=== PATIENT | female | born 1975 | race Caucasian/White ===

== ENCOUNTER 2017-06-12 15:49 | Emergency (ER) | payer MEDICAID, MEDICARE ==
[~2017-06-12] VITALS: Ht 162.6 cm; Wt 48.0 kg
[~2017-06-12 15:49] MED LIST: ALPR1 PO; COUM5TAB PO; CYCL-36 PO; FENT25DI T-DERMAL; GABA300C3 PO; IRON18TA2 PO; POTA20IN3 PO; ZOLP10TA3 PO
[2017-06-12 15:51] VITALS: BP 126/77; PULSE 87; RESP 15; TEMP 97.8; O2SAT 97
[2017-06-12] MEDS ORDERED: SODIUM CHLOR 0.9% 1000 ML INJ 1,000 ML IV SCH (16:20)
[2017-06-12 16:59] LABS: AUTOMATED NEUTROPHIL # 5.3 TH/MM3 (1.8-7.7); BASOPHIL % 0.3 % (0.0-2.0); EOSINOPHIL # 0.1 TH/MM3 (0-0.4); EOSINOPHIL % 0.7 % (0.0-4.0); HEMATOCRIT 38.4 % (35.0-46.0); HEMO FLAGS DIFF FINAL; LYMPH % 29.8 % (9.0-44.0); LYMPHOCYTE # 2.7 TH/MM3 (1.0-4.8); MEAN CELL VOLUME 99.1 FL (80.0-100.0); MEAN CORPUSCULAR HEMOGLOBIN 33.3 PG (27.0-34.0); MEAN CORPUSCULAR HGB CONC 33.6 % (32.0-36.0); MONO % 9.2 % (0.0-8.0); PLATELET COUNT 255 TH/MM3 (150-450); RED BLOOD COUNT 3.87 MIL/MM3 (4.00-5.30); RED CELL DISTRIBUTION WIDTH 15.1 % (11.6-17.2); WHITE BLOOD COUNT 8.9 TH/MM3 (4.0-11.0)
[2017-06-12] MEDS ORDERED: CYCL1TAB29 PO (17:01)
[2017-06-12] MEDS ORDERED: PROM25TA10 PO (17:01)
[2017-06-12] MEDS ORDERED: NEXI40CA PO (17:01)
[2017-06-12] MEDS ORDERED: ZOLO100T PO (17:01)
[2017-06-12] MEDS ORDERED: PERC5TAB12 PO (17:01)
[2017-06-12] MEDS ORDERED: POTA10SO12 PO (17:01)
[2017-06-12] MEDS ORDERED: COUM10TA PO (17:03)
[2017-06-12 17:11] LABS: BACTERIA, URINE RARE /hpf; BLOOD, URINE NEG (NEG); COMMENT (UR) CULTURE INDICATED; CULTURE IF INDICATED CULTURE INDICATED; GLUCOSE,URINE NEG (NEG); KETONE, URINE NEG (NEG); MUCUS URINE FEW /lpf (OCC); NITRITE,URINE POS (NEG); PH, URINE 6.5 (5.0-8.5); SQUAMOUS EPITHELIAL CELL URINE <1 /hpf (0-5); URINE COLOR YELLOW (YELLW/STRAW)
[2017-06-12 17:15] LABS: AMPHETAMINE, URINE NEG (NEG); BARBITURATES, URINE NEG (NEG); COCAINE, URINE NEG (NEG)
[2017-06-12] MEDS ORDERED: cefTRIAXone INJ 250 MG in SODIUM CHLORIDE 0.9% INJ 25 ML IV ONE (17:15)
[2017-06-12] MEDS ORDERED: DOXYCYCLINE HYCLATE 100 MG CAP PO ONE (17:15)
[2017-06-12 17:20] LABS: APTT (PATIENT) 30.1 SEC (24.3-30.1); INTERNATIONAL NORMALIZED RATIO 1.2 RATIO; PROTHROMBIN TIME - PATIENT 13.8 SEC (9.8-11.6)
--- NOTE | 2017-06-12 17:21 | PD ---
HPI Chief Complaint: [employer] Problem/Complaint Time Seen by Provider: 17:16 Travel History International Travel<30 days: No Contact w/Intl Traveler<30days: No Traveled to known affect area: No History of Present Illness HPI 41-year-old female that presents to the ED for evaluation of weakness, vaginal discharge some bleeding. Per patient she's had vaginal bleeding for about 2 weeks ago for the past couple days she's noted that she bruises easily. Per patient she takes Coumadin daily secondary to PE. She also been having a lower leg cramping. Per patient she believes this from the hydration. She has stopped her Coumadin for the past 3 days that she knows that her Coumadin level is likely high. She denies any chest pain. No shortness of breath. She does state that she feels very tired. Per patient she feels like she is spotting but she is not sure. Per patient is red and brown. Some lower abdominal discomfort noted with cramping. She states that her last menstrual was 2 months ago. She states she could have an STD. Possible . Allergies to fentanyl, Imitrex, Lamictal, morphine. No headache. No blurry vision or double vision. No other medical problems reported today. The patient most of the pain appears to be on the lower legs as well as on the lower abdomen. No nausea or vomiting. No bowel movement or urinary issues. PFSH Past Medical History Hx Anticoagulant Therapy: Yes (WARFARIN) Arthritis: Yes (RA; OA) Bipolar Disorder: Yes Anxiety: Yes Depression: Yes Heart Rhythm Problems: No Cardiac Catheterization: No Cardiovascular Problems: Yes High Cholesterol: Yes Congestive Heart Failure: No Diminished Hearing: No Deep Vein Thrombosis: Yes Gastrointestinal Disorders: Yes (GASTRITIS) Musculoskeletal: Yes (DJD) Neurologic: Yes (migrain headache) Psychiatric: Yes (PTSD) Respiratory: Yes (PE) Migraines: Yes Influenza Vaccination: No ?: Not LMP: 2 WEEKS AGO Para: 3 Tubal Ligation: Yes (ESSURE) Past Surgical History Abdominal Surgery: Yes (GASTRIC BYPASS) Other Surgery: Yes (gastric bypass) Social History Alcohol Use: No Tobacco Use: Yes (1 PPD) Substance Use: No Allergies-Medications (Allergen,Severity, Reaction): Coded Allergies: Lamictal (Verified Allergy, Severe, 06/12/17) Morphine (Verified Allergy, Severe, 06/12/17) Imitrex (Verified Adverse Reaction, Intermediate, MAKES HEADACHE WORSE, ) Fentanyl (Verified Adverse Reaction, Unknown, Confusion, 06/12/17) Reported Meds & Prescriptions Reported Meds & Active Scripts Active Doxycycline Hyclate 100 Mg Cap 100 Mg PO BID 10 Days Reported Coumadin (Warfarin) 10 Mg Tab 5 Mg PO DAILY Zoloft (Sertraline HCl) 100 Mg Tab 100 Mg PO DAILY Nexium (Esomeprazole DR) 40 Mg Capdr 40 Mg PO DAILY Phenergan (Promethazine HCl) 25 Mg Tablet 25 Mg PO Q6H PRN Potassium Chloride Liq (Potassium Chloride) Unknown Strength Soln Unknown Dose PO DAILY PRN Flexeril (Cyclobenzaprine HCl) 10 Mg Tab 10 Mg PO BID Percocet (Oxycodone-Acetaminophen) 5-325 mg Tab 1 Tab PO Q12HR PRN Review of Systems Except as stated in HPI: all other systems reviewed are Neg Physical Exam Narrative GENERAL: SKIN: Warm and dry. HEAD: Atraumatic. Normocephalic. EYES: Pupils equal and round. No scleral icterus. No injection or drainage. ENT: No nasal bleeding or discharge. Mucous membranes pink and moist. Tongue is midline. No uvula deviation. NECK: Trachea midline. No JVD. CARDIOVASCULAR: Regular rate and rhythm. No murmurs, S3, S4. RESPIRATORY: No accessory muscle use. Clear to auscultation. Breath sounds equal bilaterally. GASTROINTESTINAL: Abdomen soft, non-tender, nondistended. Hepatic and splenic margins not palpable. Pelvic exam: Done with female nurse present. Patient has no obvious deformity outside the vaginal wall. Patient is a brownish smelly discharge coming from the vagina. No sign of mass or deformity to the vagina itself but there is brownish discharge that appears to be puslike coming from the cervix. No adnexal tenderness. No cervical tenderness. No other deformity or finding noted. MUSCULOSKELETAL: Extremities without clubbing, cyanosis, or edema. No obvious deformities. Full range of motion of the upper and lower extremities bilaterally. 2+ pulses bilaterally. NEUROLOGICAL: Awake and alert. No obvious cranial nerve deficits. Motor grossly within normal limits. Five out of 5 muscle strength in the arms and legs. Normal speech. PSYCHIATRIC: Appropriate mood and affect; insight and judgment normal. Data Data Last Documented VS Vital Signs Date Time Temp Pulse Resp B/P Pulse Ox O2 Delivery O2 Flow Rate FiO2 06/12/17 15:51 97.8 87 15 126/77 97 Orders Electrocardiogram (06/12/17 16:20) Complete Blood Count With Diff (06/12/17 16:20) Comprehensive Metabolic Panel (06/12/17 16:20) Creatine Kinase (Cpk) (06/12/17 16:20) Prothrombin Time / Inr (Pt) (06/12/17 16:20) Act Partial Throm Time (Ptt) (06/12/17 16:20) Urinalysis - C+S If Indicated (06/12/17 16:20) Magnesium (Mg) (06/12/17 16:20) Thyroid Stimulating Hormone (06/12/17 16:20) Wet Prep Profile (06/12/17 16:20) Gc And Chlamydia Pcr (06/12/17 16:20) Iv Access Insert/Monitor (06/12/17 16:20) Ecg Monitoring (06/12/17 16:20) Oximetry (06/12/17 16:20) Ed Urine Pregnancytest Poc (06/12/17 16:20) Drug Screen, Random Urine (06/12/17 16:20) Alcohol (Ethanol) (06/12/17 16:20) Sodium Chlor 0.9% 1000 Ml Inj (Ns 1000 M (06/12/17 16:20) Ceftriaxone Inj (Rocephin Inj) (06/12/17 17:15) Doxycycline (Vibramycin) (06/12/17 17:15) Urine Culture (06/12/17 16:30) Labs Laboratory Tests Test 06/12/17 06/12/17 16:30 16:52 White Blood Count 8.9 TH/MM3 Red Blood Count 3.87 MIL/MM3 Hemoglobin 12.9 GM/DL Hematocrit 38.4 % Mean Corpuscular Volume 99.1 FL Mean Corpuscular Hemoglobin 33.3 PG Mean Corpuscular Hemoglobin 33.6 % Concent Red Cell Distribution Width 15.1 % Platelet Count 255 TH/MM3 Mean Platelet Volume 8.7 FL Neutrophils (%) (Auto) 60.0 % Lymphocytes (%) (Auto) 29.8 % Monocytes (%) (Auto) 9.2 % Eosinophils (%) (Auto) 0.7 % Basophils (%) (Auto) 0.3 % Neutrophils # (Auto) 5.3 TH/MM3 Lymphocytes # (Auto) 2.7 TH/MM3 Monocytes # (Auto) 0.8 TH/MM3 Eosinophils # (Auto) 0.1 TH/MM3 Basophils # (Auto) 0.0 TH/MM3 CBC Comment DIFF FINAL Differential Comment Prothrombin Time 13.8 SEC Prothromb Time International 1.2 RATIO Ratio Activated Partial 30.1 SEC Thromboplast Time Urine Color YELLOW Urine Turbidity HAZY Urine pH 6.5 Urine Specific [place] 1.014 Urine Protein NEG mg/dL Urine Glucose (UA) NEG mg/dL Urine Ketones NEG mg/dL Urine Occult Blood NEG Urine Nitrite POS Urine Bilirubin NEG Urine Urobilinogen LESS THAN 2.0 MG/DL Urine Leukocyte Esterase NEG Urine WBC LESS THAN 1 /hpf Urine Squamous Epithelial <1 /hpf Cells Urine Bacteria RARE /hpf Urine Mucus FEW /lpf Microscopic Urinalysis Comment CULTURE INDICATED Sodium Level 140 MEQ/L Potassium Level 4.5 MEQ/L Chloride Level 107 MEQ/L Carbon Dioxide Level 24.0 MEQ/L Anion Gap 9 MEQ/L Blood Urea Nitrogen 14 MG/DL Creatinine 0.77 MG/DL Estimat Glomerular Filtration 83 ML/MIN Rate Random Glucose 85 MG/DL Calcium Level 8.2 MG/DL Magnesium Level 2.1 MG/DL Total Bilirubin 0.4 MG/DL Aspartate Amino Transf 21 U/L (AST/SGOT) Alanine Aminotransferase 18 U/L (ALT/SGPT) Alkaline Phosphatase 78 U/L Total Creatine Kinase 62 U/L Total Protein 7.3 GM/DL Albumin 3.4 GM/DL Thyroid Stimulating Hormone 4.220 uIU/ML 3rd Gen Urine Opiates Screen NEG Urine Barbiturates Screen NEG Urine Amphetamines Screen NEG Urine Benzodiazepines Screen NEG Urine Cocaine Screen NEG Urine Cannabinoids Screen NEG Ethyl Alcohol Level LESS THAN 3 MG/DL Clue Cells (Wet Prep) NONE SEEN Vaginal Trichomonas (Wet Prep) NONE SEEN Vaginal Yeast (Wet Prep) NONE SEEN MDM Medical Decision Making Medical Screen Exam Complete: Yes Emergency Medical Condition: Yes Medical Record Reviewed: Yes Interpretation(s) CBC & BMP Diagram 06/12/17 16:30 coags WNL INR 1.3 UA shows nitrates wet prep negative Differential Diagnosis Vaginitis versus STD versus dehydration versus electron normal at the versus coagulopathy Narrative Course 41-year-old female that presents to the ED for evaluation of vaginal bleeding and weakness. Patient was properly examined and was found to have signs and symptoms consistent with appears to be discharged. No sign of obvious cervical tenderness but cannot rule out PID. Patient will have wet prep and labs. Weakness and vaginal bleeding likely secondary to the infection. Labs showed no sign of acute disease. INR 61.3. Patient was told that she can resume her Coumadin again. The with PCP. At this time I believe the patient likely has STD likely early PID. We'll treat with doxycycline as well as ceftriaxone. Patient was given first dose here. Patient was sent home with a prescription for this. She was told that she should continue taking her Coumadin as prescribed. See ED worsening symptoms. Follow with PCP. No sex for 2 weeks. Diagnosis Primary Impression: PID (acute pelvic inflammatory disease) Patient Instructions: General Instructions Additional Instructions: Take medication as prescribed. No sex for 2 weeks. See ED worsening symptoms. Follow with PCP. Your labs where unremarcable other than possible STD. Med/Other Pt SpecificInfo: Prescription(s) given Scripts Doxycycline Hyclate 100 Mg [id number] Mg PO BID 10 Days Ref 0 Prov:Nash Lewis MD 06/12/17 Disposition: 01 DISCHARGE HOME Condition: Stable Aguilar Harley Jun 12, 2017 17:21
[2017-06-12 17:30] LABS: ALKALINE PHOSPHATASE 78 U/L (45-117); ALT (GPT) 18 U/L (10-53); ANION GAP 9 MEQ/L (5-15); AST (GOT) 21 U/L (15-37); BLOOD UREA NITROGEN 14 MG/DL (7-18); CHLORIDE 107 MEQ/L (98-107); GLOMERULAR FILTRATION RATE 83 ML/MIN (>89); MAGNESIUM 2.1 MG/DL (1.5-2.5); POTASSIUM 4.5 MEQ/L (3.5-5.1); SODIUM (NA) 140 MEQ/L (136-145); TOTAL BILIRUBIN ADULT 0.4 MG/DL (0.2-1.0)
[2017-06-12 17:31] LABS: CREATINE KINASE 62 U/L (26-192)
[2017-06-12] MEDS ORDERED: DOXY100C PO (17:34)
[2017-06-12 21:03] LABS: CHLAMYDIA PCR NOT DETECTED (NOT DETECT); NEISSERIA PCR NOT DETECTED (NOT DETECT)
--- NOTE | 2017-06-13 18:21 | EKG ---
Date Performed: 06/12/2017 Time Performed: 16:42:14 PTAGE: 41 years EKG: Sinus rhythm NORMAL ECG PREVIOUS TRACING : 02/08/2016 05.10 Compared to prior tracing no significant change DOCTOR: Jaylon Sidhu Interpretating Date/Time 06/13/2017 18:21:20
== END 2017-06-12 19:45 | disposition home or self-care (01) ==
LOC: NEPE 15:49
DX: N73.0 Acute parametritis and pelvic cellulitis (principal); B96.20 Unspecified Escherichia coli [E. coli] as the cause of diseases classified elsewhere; Z79.01 Long term (current) use of anticoagulants; Z79.899 Other long term (current) drug therapy
CPT/HCPCS: 80053; 80307; 81001; 82550; 83735; 84443; 84703; 85025; 85610; 85730; 87077; 87086; 87186; 87210; 87491; 87591; 93005; 96361; 96365; 99284; J0696; J7030